=== PATIENT | female | born 1980 | race Caucasian/White ===

== ENCOUNTER 2017-05-10 21:50 | Emergency (ER) | payer OTHER ==
[2017-05-11 01:11] VITALS: BP 140/84
== END 2017-05-11 01:11 | disposition home or self-care (01) ==
LOC: ED 21:50
DX: L03.115 Cellulitis of right lower limb (principal); Z88.1 Allergy status to other antibiotic agents; Z88.0 Allergy status to penicillin; G43.909 Migraine, unspecified, not intractable, without status migrainosus
CPT/HCPCS: J0696

== ENCOUNTER 2018-01-06 02:01 | Emergency (ER) | payer MEDICAID ==
[~2018-01-06] VITALS: Ht 162.6 cm; Wt 59.5 kg
[2018-01-06 02:12] VITALS: Ht 162.6 cm; Wt 59.5 kg
[2018-01-06 03:21] VITALS: BP 106/69
== END 2018-01-06 03:21 | disposition home or self-care (01) ==
LOC: ED 02:01
DX: S01.01XA Laceration without foreign body of scalp, initial encounter (principal); Z88.0 Allergy status to penicillin; Z88.1 Allergy status to other antibiotic agents; W22.8XXA Striking against or struck by other objects, initial encounter; Y93.89 Activity, other specified; Y92.89 Other specified places as the place of occurrence of the external cause; Y99.8 Other external cause status

== ENCOUNTER 2018-01-07 23:32 | Emergency (ER) | payer MEDICAID ==
[~2018-01-07] VITALS: Ht 162.6 cm; Wt 60.3 kg
[2018-01-07 23:40] VITALS: BP 141/93; Ht 162.6 cm; Wt 60.3 kg
== END 2018-01-08 00:07 | disposition home or self-care (01) ==
LOC: ED 23:32
DX: H60.12 Cellulitis of left external ear (principal); Z88.0 Allergy status to penicillin; Z88.8 Allergy status to other drugs, medicaments and biological substances